=== PATIENT | female | born 1980 | race Two or more races ===

== ENCOUNTER → 2020-01-05 | Outpatient (CLI) | payer SELFPAY ==
--- NOTE | 2020-01-05 10:35 | Diagnostic Imaging Report ---
Right hand, 3 views INDICATION: ^[id number] ^[id number] ^INJURY RT RING FINGER Comparison: None available. Discussion: Multiple views of the right hand are negative for an acute displaced fracture or dislocation. Joint spaces are well-maintained. Mild soft tissue swelling is identified about the proximal aspect of the right fourth digit centered at the proximal interphalangeal joint. Joint spaces are well-maintained. IMPRESSION: Negative for acute displaced fracture or dislocation of the right hand. Focal soft tissue swelling at the proximal fourth right digit is noted. Signed by: Jevon Schultz MD on 01/05/2020 10:32 AM
== END ==
LOC: RAD 09:49 → EDBD 09:49
PROVIDERS: ATTEND Internal Medicine
DX: S69.91XA Unspecified injury of right wrist, hand and finger(s), initial encounter (principal); M79.89 Other specified soft tissue disorders